=== PATIENT | male | born 1945 | race Caucasian/White ===

== ENCOUNTER → 2017-08-22 | Outpatient (REF) | payer MEDICARE | LOC: M LAB REF 17:28 | DX: Z51.81 Encounter for therapeutic drug level monitoring (principal); Z79.899 Other long term (current) drug therapy | CPT/HCPCS: 84443 ==

== ENCOUNTER → 2017-10-03 | Outpatient (REF) | payer MEDICARE, OTHER ==
[2017-10-03 14:55] LABS: APPEARANCE, URINE CLEAR (CLEAR); BACTERIA, URINE AUTO NEGATIVE (NEGATIVE); BILIRUBIN, URINE AUTO NEGATIVE (NEGATIVE); BLOOD, URINE BLOOD NEGATIVE (NEGATIVE); COLOR, URINE YELLOW (YELLOW); GLUCOSE, URINE (UA) AUTO NEGATIVE (NEGATIVE); KETONE, URINE AUTO NEGATIVE (NEGATIVE); LEUKOCYTE ESTERASE, URINE AUTO NEGATIVE (NEGATIVE); MUCUS, URINE SMALL (NEGATIVE); NITRITE, URINE AUTO NEGATIVE (NEGATIVE); PROTEIN, URINE AUTO NEGATIVE (NEGATIVE); RBC, URINE AUTO 0 /HPF (0-3); SPECIFIC GRAVITY URINE AUTO 1.014 (1.002-1.035); SQUAMOUS EPITHELIAL CELL UR AU 0 /HPF (0-6); UROBILINOGEN, URINE AUTO 0.2 mg/dL (0.0-2.0); WBC, URINE AUTO 0 /HPF (0-3)
== END ==
LOC: M SMT 13:05
DX: N40.1 Benign prostatic hyperplasia with lower urinary tract symptoms (principal)
CPT/HCPCS: 81001

== ENCOUNTER → 2017-10-03 | Outpatient (REF) | payer MEDICARE, OTHER | LOC: M LAB REF 17:12 | DX: Z51.81 Encounter for therapeutic drug level monitoring (principal); Z79.899 Other long term (current) drug therapy | CPT/HCPCS: 84443 ==

== ENCOUNTER → 2017-10-03 | Outpatient (CLI) | payer MEDICARE, OTHER ==
[~2017-10-03] MED LIST: ISOVUE-370 76% 100ML VIAL (Q9967) As Ordered
== END ==
LOC: M RAD 14:38
DX: J90 Pleural effusion, not elsewhere classified (principal); J98.11 Atelectasis; K80.20 Calculus of gallbladder without cholecystitis without obstruction; R91.8 Other nonspecific abnormal finding of lung field; R06.02 Shortness of breath; Z51.81 Encounter for therapeutic drug level monitoring; Z79.899 Other long term (current) drug therapy; N40.1 Benign prostatic hyperplasia with lower urinary tract symptoms
CPT/HCPCS: Q9967

== ENCOUNTER → 2017-10-06 | Outpatient (REF) | payer MEDICARE, OTHER ==
[2017-10-06 13:16] LABS: INR 1.12; PROTHROMBIN TIME 14.6 SECONDS (12.1-14.4)
[2017-10-06 13:17] LABS: PARTIAL THROMBOPLASTIN TIME 25.5 SECONDS (25.4-37.6)
== END ==
LOC: M LAB REF 12:48
DX: Z01.818 Encounter for other preprocedural examination (principal); Z79.01 Long term (current) use of anticoagulants
CPT/HCPCS: 85610

== ENCOUNTER 2017-10-07 13:00 | Emergency (ER) | payer MEDICARE, OTHER ==
[2017-10-07 16:11] LABS: BF MONONUCLEAR CELL % 98.4 % (0-0); BF POLYMORPHONUCLEAR CELL % 1.6 % (0-0); RBC BODY FLUID 89 10^3/uL (<2); WBC BODY FLUID 1280 /uL (0-10)
[2017-10-07 16:13] LABS: APPEARANCE, BODY FLUID CLOUDY (CLEAR); BF DIFF IF INDICATED? YES (NO); PH BODY FLUID 7.423 UNITS (NOT ESTABLISHED); PLEURAL FL COLOR RED (COLORLESS); SOURCE, BODY FLUID PLEURAL; SOURCE, BODY FLUID pH PLEURAL
[2017-10-07 16:32] LABS: AMYLASE, BODY FLUID 32 U/L (NOT ESTABLISHED); CHOLESTEROL, BODY FLUID < 50 MG/DL (NOT ESTABLISHED); LDH, BODY FLUID 523 U/L (NOT ESTABLISHED); SOURCE, BODY FLUID ALBUMIN PLEURAL; SOURCE, BODY FLUID AMYLASE PLEURAL; SOURCE, BODY FLUID CHOL PLEURAL; SOURCE, BODY FLUID GLUCOSE PLEURAL; SOURCE, BODY FLUID LDH PLEURAL; SOURCE, BODY FLUID TOT PROTEIN PLEURAL; SOURCE, BODY FLUID TRIG PLEURAL; TOTAL PROTEIN, BODY FLUID 4.3 G/DL (NOT ESTABLISHED); TRIGLYCERIDE, BODY FLUID 22 MG/DL (NOT ESTABLISHED)
== END 2017-10-07 15:49 | disposition home or self-care (01) ==
LOC: M ED 13:00
DX: J90 Pleural effusion, not elsewhere classified (principal); C45.9 Mesothelioma, unspecified; G47.33 Obstructive sleep apnea (adult) (pediatric); Z79.899 Other long term (current) drug therapy; Z79.82 Long term (current) use of aspirin
CPT/HCPCS: 82150

== ENCOUNTER 2017-10-16 10:29 | Inpatient (IN) | payer MEDICARE, OTHER ==
[2017-10-16] MEDS: PANTOPRAZOLE 40MG TAB (PROTONIX) PO (09:00)
[2017-10-16 11:06] LABS: BASO % 0.9 % (0.0-1.0); EOS # 0.1 10^3/uL (0.0-0.50); HEMATOCRIT 43.4 % (42.0-52.0); HEMOGLOBIN 13.2 g/dl (13.5-17.5); IMMATURE GRANULOCYTE % 0.2 % (0-3.0); LYMPH # 0.5 10^3/uL (1.5-4.5); LYMPH % 12.1 % (24.0-44.0); MEAN CORPUSCULAR HEMOGLOBIN 25.8 pg (27.0-33.0); MEAN CORPUSCULAR HGB CONC 30.4 g/dl (32.0-36.5); MEAN CORPUSCULAR VOLUME 84.9 fl (80.0-96.0); MONO # 0.5 10^3/uL (0.0-0.8); MONO % 11.6 % (0.0-5.0); NEUTROPHILS # 3.2 10^3/uL (1.8-7.7); NEUTROPHILS % 72.2 % (36.0-66.0); PLATELET COUNT, AUTOMATED 155 10^3/uL (150-450); RED BLOOD COUNT 5.11 10^6/uL (4.30-6.10); RED CELL DISTRIBUTION WIDTH 15.6 % (11.5-14.5); WHITE BLOOD COUNT 4.4 10^3/uL (4.0-10.0)
[2017-10-16 11:17] LABS: INR 1.03; PROTHROMBIN TIME 13.6 SECONDS (12.1-14.4)
[2017-10-16 11:33] LABS: ALBUMIN 3.8 GM/DL (3.2-5.2); ALBUMIN/GLOBULIN RATIO 0.88 (1.00-1.93); ALKALINE PHOSPHATASE 96 U/L (45-117); ALT/SGPT 17 U/L (12-78); ANION GAP 5 MEQ/L (8-16); AST/SGOT 24 U/L (7-37); BILIRUBIN,DIRECT 0.1 MG/DL (0.0-0.2); BILIRUBIN,TOTAL 0.5 MG/DL (0.2-1.0); BLOOD UREA NITROGEN 18 MG/DL (7-18); CALCIUM LEVEL 9.6 MG/DL (8.8-10.2); CARBON DIOXIDE LEVEL 33 MEQ/L (21-32); CHLORIDE LEVEL 102 MEQ/L (98-107); CREATININE FOR GFR 1.12 MG/DL (0.70-1.30); GLOMERULAR FILTRATION RATE > 60.0 (>42); GLUCOSE, FASTING 80 MG/DL (70-100); POTASSIUM SERUM 4.5 MEQ/L (3.5-5.1); SODIUM LEVEL 140 MEQ/L (136-145); TOTAL PROTEIN 8.1 GM/DL (6.4-8.2)
[2017-10-16] MEDS ORDERED: ISOVUE-370 76% 100ML VIAL (Q9967) As Ordered (11:59)
[2017-10-16] MEDS: LEVALBUTEROL 1.25 MG/0.5 ML CONCENTRATE NEB NEB ×2 (14:00→20:44)
[2017-10-16] MEDS ORDERED: LEVALBUTEROL 1.25 MG/0.5 ML CONCENTRATE NEB NEB (14:45)
[2017-10-16] MEDS ORDERED: PERCOCET 5MG/325MG TAB PO ×2 (14:45)
[2017-10-16] MEDS ORDERED: NORCO, ANEXSIA 5/325MG TABLET (HYDROcodone/ACETAMINOPHEN) PO (14:45)
[2017-10-16] MEDS ORDERED: BISACODYL 10 MG SUPP PR (14:45)
[2017-10-16] MEDS ORDERED: ACETAMINOPHEN TAB 650MG DOSE (2X325MG) PO (14:45)
[2017-10-16] MEDS ORDERED: ONDANSETRON 4MG/2ML VIAL (J2405) IV (14:45)
[2017-10-16] MEDS ORDERED: MIDAZOLAM INJ 2 MG/2 ML VIAL (J2250) As Ordered ×3 (15:01→15:02)
[2017-10-16] MEDS ORDERED: FLUMAZENIL 0.5 MG/5 ML VIAL As Ordered (15:01)
[2017-10-16] MEDS ORDERED: LIDOCAINE 1% MDV 20ML VIAL As Ordered (15:02)
[2017-10-16] MEDS: KETOROLAC 30 MG/ML VIAL (J1885) IV ×2 (16:45→21:30)
[2017-10-16] MEDS: KCL 20MEQ IN D5/NS 1000ML 1,000 ML IV (16:45)
[2017-10-16 16:49] LABS: LDH LACTATE DEHYDROGENASE 202 U/L (87-241)
[2017-10-16 17:26] LABS: PH BODY FLUID 7.421 UNITS (NOT ESTABLISHED); SOURCE, BODY FLUID pH PLEURAL
[2017-10-16 17:58] LABS: BF MONONUCLEAR CELL % 78.9 % (0-0); BF POLYMORPHONUCLEAR CELL % 21.1 % (0-0); RBC BODY FLUID 974 10^3/uL (<2); WBC BODY FLUID 1734 /uL (0-10)
[2017-10-16 18:00] LABS: AMYLASE, BODY FLUID 28 U/L (NOT ESTABLISHED); CHOLESTEROL, BODY FLUID < 50 MG/DL (NOT ESTABLISHED); LDH, BODY FLUID 1208 U/L (NOT ESTABLISHED); SOURCE, BODY FLUID ALBUMIN PLEURAL; SOURCE, BODY FLUID AMYLASE PLEURAL; SOURCE, BODY FLUID CHOL PLEURAL; SOURCE, BODY FLUID GLUCOSE PLEURAL; SOURCE, BODY FLUID LDH PLEURAL; SOURCE, BODY FLUID TOT PROTEIN PLEURAL; SOURCE, BODY FLUID TRIG PLEURAL; TRIGLYCERIDE, BODY FLUID 43 MG/DL (NOT ESTABLISHED)
[2017-10-16 18:04] LABS: APPEARANCE, BODY FLUID TURBID (CLEAR); BF DIFF IF INDICATED? YES (NO); PLEURAL FL COLOR RED (COLORLESS); SOURCE, BODY FLUID PLEURAL
[2017-10-16] MEDS: LIDOCAINE 1% MDV 20ML VIAL SC (18:25)
[2017-10-16] MEDS: MIDAZOLAM INJ 2 MG/2 ML VIAL (J2250) IV ×2 (18:26)
[2017-10-16] MEDS: FLUMAZENIL 0.5 MG/5 ML VIAL IV (18:27)
[2017-10-16] MEDS: HEPARIN SOD (PORCINE) 5000 UNITS/ML VIAL SC (21:00)
[2017-10-16] MEDS: DOCUSATE SODIUM 100 MG CAP PO (21:29)
[2017-10-16] MEDS: TAMSULOSIN 0.4 MG CAP PO (21:29)
[2017-10-16] MEDS: ASPIRIN 81 MG ENTERIC TAB PO (21:29)
[2017-10-16] MEDS: LORATADINE 10 MG TAB PO (21:29)
[2017-10-17] MEDS: LEVALBUTEROL 1.25 MG/0.5 ML CONCENTRATE NEB NEB ×2 (01:49→08:00)
[2017-10-17] MEDS: KETOROLAC 30 MG/ML VIAL (J1885) IV ×2 (04:31→09:45)
[2017-10-17 05:34] LABS: BASO % 0.7 % (0.0-1.0); EOS # 0.1 10^3/uL (0.0-0.50); EOS % 2.9 % (0.0-3.0); HEMATOCRIT 39.6 % (42.0-52.0); IMMATURE GRANULOCYTE % 0.2 % (0-3.0); LYMPH # 0.5 10^3/uL (1.5-4.5); LYMPH % 12.2 % (24.0-44.0); MEAN CORPUSCULAR HEMOGLOBIN 25.9 pg (27.0-33.0); MEAN CORPUSCULAR HGB CONC 30.3 g/dl (32.0-36.5); MEAN CORPUSCULAR VOLUME 85.5 fl (80.0-96.0); MONO # 0.6 10^3/uL (0.0-0.8); MONO % 14.1 % (0.0-5.0); NEUTROPHILS # 2.9 10^3/uL (1.8-7.7); NEUTROPHILS % 69.9 % (36.0-66.0); PLATELET COUNT, AUTOMATED 118 10^3/uL (150-450); RED BLOOD COUNT 4.63 10^6/uL (4.30-6.10); RED CELL DISTRIBUTION WIDTH 15.7 % (11.5-14.5); WHITE BLOOD COUNT 4.2 10^3/uL (4.0-10.0)
[2017-10-17 05:49] LABS: ANION GAP 8 MEQ/L (8-16); BLOOD UREA NITROGEN 19 MG/DL (7-18); CARBON DIOXIDE LEVEL 27 MEQ/L (21-32); CHLORIDE LEVEL 105 MEQ/L (98-107); CREATININE FOR GFR 1.12 MG/DL (0.70-1.30); GLOMERULAR FILTRATION RATE > 60.0 (>42); GLUCOSE, FASTING 80 MG/DL (70-100); POTASSIUM SERUM 4.4 MEQ/L (3.5-5.1); SODIUM LEVEL 140 MEQ/L (136-145)
[2017-10-17] MEDS: GEMFIBROZIL 600 MG TAB PO (07:46)
[2017-10-17] MEDS: DOCUSATE SODIUM 100 MG CAP PO (07:46)
[2017-10-17] MEDS: FINASTERIDE 5 MG TAB PO (07:46)
[2017-10-17] MEDS: PANTOPRAZOLE 40MG TAB (PROTONIX) PO (07:46)
[2017-10-17] MEDS: MOM 30ML SUSPENSION UDC PO (07:46)
[2017-10-17] MEDS: HEPARIN SOD (PORCINE) 5000 UNITS/ML VIAL SC (07:47)
== END 2017-10-17 13:16 | disposition home or self-care (01) | DRG 845 ==
LOC: M ED 10:29 → M ED INP 13:47 → M PCU 15:25
PROC: 0W9B30Z Drainage of Left Pleural Cavity with Drainage Device, Percutaneous Approach (ICD-10-PCS; principal; 2017-10-16)
DX: C45.9 Mesothelioma, unspecified (principal); J91.0 Malignant pleural effusion; Z66 Do not resuscitate; Z79.899 Other long term (current) drug therapy; Z87.891 Personal history of nicotine dependence; Z92.21 Personal history of antineoplastic chemotherapy; Z79.82 Long term (current) use of aspirin

== ENCOUNTER → 2017-10-26 | Outpatient (CLI) | payer MEDICARE, OTHER | LOC: M SMT 08:42 | DX: J90 Pleural effusion, not elsewhere classified (principal); C45.0 Mesothelioma of pleura; Z51.81 Encounter for therapeutic drug level monitoring; Z79.899 Other long term (current) drug therapy | CPT/HCPCS: 84443 ==

== ENCOUNTER → 2017-10-26 | Outpatient (REF) | payer MEDICARE, OTHER ==
[2017-10-26 15:26] LABS: FREE T4 0.98 NG/DL (0.76-1.46)
== END ==
LOC: M LAB REF 14:11
DX: C45.0 Mesothelioma of pleura (principal); Z51.81 Encounter for therapeutic drug level monitoring; Z79.899 Other long term (current) drug therapy

== ENCOUNTER → 2017-11-16 | Outpatient (REF) | payer MEDICARE, OTHER ==
[2017-11-16 14:29] LABS: FREE T4 1.04 NG/DL (0.76-1.46)
== END ==
LOC: M LAB REF 13:52
DX: Z79.899 Other long term (current) drug therapy (principal)
CPT/HCPCS: 84443